=== PATIENT | male | born 1940 | race Caucasian/White ===

== ENCOUNTER 2025-04-29 10:46 | Emergency (ER) | payer MEDICARE, MEDICAID ==
[~2025-04-29] VITALS: Ht 167.6 cm; Wt 106.0 kg
[2025-04-29 11:15] VITALS: O2SAT 99
[2025-04-29] MEDS ORDERED: FLUT9.9S BOTHNSTRLS (14:39)
[2025-04-29] MEDS ORDERED: CLAR10 MT (14:39)
[2025-04-29 14:55] VITALS: BP 152/81; PULSE 65; RESP 14; TEMP 36.7; O2SAT 99
== END 2025-04-29 14:56 | disposition home or self-care (01) ==
LOC: ER 10:46
DX: J30.9 Allergic rhinitis, unspecified (principal); R04.0 Epistaxis; I10 Essential (primary) hypertension
CPT/HCPCS: 99282